=== PATIENT | male | born 1950 | race Caucasian/White ===

== ENCOUNTER 2016-10-07 00:31 | Emergency (ER) | payer OTHER ==
[~2016-10-07] VITALS: Ht 165.1 cm; Wt 73.6 kg
[2016-10-07 03:18] LABS: HEMATOCRIT 42.2 % (38.0-50.0); MCH 28.9 PG (29.0-34.0); MCHC 33.9 G/DL (30.0-36.0); MCV 85.4 FL (86-99); MEAN PLAT.VOLUME 11.6 uM^3 (9.0-12.4); PLATELET COUNT 283 K/uL (156-360); RBC DIS.WIDTH-CV 13.6 % (11.8-14.6); RBC DIS.WIDTH-SD 41.8 % (39-53); RED BLOOD COUNT 4.94 M/uL (4.00-5.50); WHITE BLOOD COUNT 11.2 K/uL (4.1-10.2)
[2016-10-07 03:28] LABS: CHLORIDE 106 mEq/L (99-109); POTASSIUM 4.1 mEq/L (3.7-5.4); SODIUM 141 mEq/L (136-147)
[2016-10-07 03:29] LABS: GLUCOSE 203 mg/dL (70-99)
[2016-10-07 03:31] LABS: ANION GAP 11 MEQ/L (2-14)
[2016-10-07 03:33] LABS: GFR ESTIMATE (CALCULATED) > 59 mL/min/
[2016-10-07 03:34] LABS: UREA NITROGEN (BUN) 19 mg/dL (9-23)
[2016-10-07 03:36] LABS: URIC ACID 6.3 mg/dL (3.1-9.2)
[2016-10-07 03:51] LABS: APPEARANCE BLOODY/TURBID
[2016-10-07 03:52] LABS: CRYSTALS ND
[2016-10-07 03:58] LABS: MONONUCLEAR WBC'S ND %; POLYNUCLEAR WBC'S ND % (0-25); RED CELL COUNT ND /MM^3 (0-1); SYNOVIAL FLUID EOSINOPHILS ND % (0-25); WHITE CELL COUNT ND /MM^3 (0-200.0)
[2016-10-07] MEDS ORDERED: PERCOCET 5/31 TABLET PO (04:45)
[2016-10-07] MEDS ORDERED: CIPRO500 MG PO (04:45)
[2016-10-07 04:51] LABS: SYNOVIAL FLUID PROTEIN 2.6 G/DL
[2016-10-07 05:21] VITALS: BP 161/81
== END 2016-10-07 05:22 | disposition home or self-care (01) ==
LOC: EME 00:31 → EXP 00:31
PROVIDERS: Emergency Medicine
PROC: 0S9C3ZZ Drainage of Right Knee Joint, Percutaneous Approach (ICD-10-PCS; principal; 2016-10-07)
DX: M25.461 Effusion, right knee (principal); M25.561 Pain in right knee; Z88.6 Allergy status to analgesic agent
CPT/HCPCS: 73564; 80048; 82945 91; 84157; 84550; 85027; 87070; 87205; 89051; 89060; 99281; 99284